=== PATIENT | male | born 1960 | race Caucasian/White ===

== ENCOUNTER 2020-10-03 06:08 | Day surgery (SDC) | payer OTHER ==
[2020-10-02 12:01] LABS: COVID AG,FIA SOURCE NASOPHARYNGEAL
[~2020-10-03] VITALS: Ht 170.2 cm; Wt 84.5 kg
[~2020-10-03 06:08] MED LIST: KETOROLAC TROMETHAMINE 0.5% 5 ML OPHTHALMIC SOLUTION ONE; MOXIFLOXACIN HCL 0.5% 3 ML OPHTHALMIC SOLUTION ONE; PHENYLEPHRINE HCL 2.5% 2 ML OPHTHALMIC SOLUTION ONE; RINGERS SOLUTION,LACTATED 500 ML IV ONE; TROPICAMIDE 1% 2 ML OPHTHALMIC SOLUTION ONE
[2020-10-03] MEDS ORDERED: FentaNYL CITRATE PF 100 MCG/2 ML VIAL IVP ONE (06:09)
[2020-10-03] MEDS ORDERED: MIDAZOLAM HCL 2 MG/2 ML VIAL IVP ONE (06:09)
[2020-10-03] MEDS ORDERED: MOME13HF IH (07:01)
[2020-10-03] MEDS ORDERED: ATOR40TA28 PO (07:01)
[2020-10-03] MEDS: MOXIFLOXACIN HCL 0.5% 3 ML OPHTHALMIC SOLUTION OS SCH ×3 (07:03→07:16)
[2020-10-03] MEDS: KETOROLAC TROMETHAMINE 0.5% 5 ML OPHTHALMIC SOLUTION OS SCH ×3 (07:03→07:16)
[2020-10-03] MEDS: TROPICAMIDE 1% 2 ML OPHTHALMIC SOLUTION OS SCH ×3 (07:04→07:16)
[2020-10-03] MEDS: PHENYLEPHRINE HCL 2.5% 2 ML OPHTHALMIC SOLUTION OS SCH ×3 (07:04→07:16)
[2020-10-03] MEDS ORDERED: TETRACAINE HCL/PF 0.5% 4 ML OPHTHALMIC SOLUTION ONE (14:53)
[2020-10-03] MEDS ORDERED: POVIDONE-IODINE 10% 15 ML SOLUTION UD ONE (14:53)
[2020-10-03] MEDS ORDERED: EPINEPHrine 1:1,000 [1 MG/ML] AMP ONE (14:53)
[2020-10-03] MEDS ORDERED: CHONDR SULF A SOD/HYALURONATE 1.05 ML KIT IO ONE (14:53)
[2020-10-03] MEDS ORDERED: BALANCED SALT 15 ML OPHTHALMIC IRRIG.SOLN ONE (14:53)
== END 2020-10-03 09:50 | disposition home or self-care (01) ==
LOC: SURGERY 06:08
PROVIDERS: ATTEND Ophthalmology
DX: H26.8 Other specified cataract (principal); H40.89 Other specified glaucoma; E78.00 Pure hypercholesterolemia, unspecified; I10 Essential (primary) hypertension; Z79.899 Other long term (current) drug therapy; J45.909 Unspecified asthma, uncomplicated; Z98.890 Other specified postprocedural states
CPT/HCPCS: 65820; 66984; 87426; 93005; A9575; C9803; J0171; J2250; J3010; J7120; V2632

== ENCOUNTER 2021-05-16 18:59 | Emergency (ER) | payer OTHER ==
[~2021-05-16] VITALS: Ht 175.3 cm; Wt 89.1 kg
[~2021-05-16 18:59] MED LIST changes: +ATOR40TA28 PO; -KETOROLAC TROMETHAMINE 0.5% 5 ML OPHTHALMIC SOLUTION ONE; +MOME13HF IH; -MOXIFLOXACIN HCL 0.5% 3 ML OPHTHALMIC SOLUTION ONE; -PHENYLEPHRINE HCL 2.5% 2 ML OPHTHALMIC SOLUTION ONE; -RINGERS SOLUTION,LACTATED 500 ML IV ONE; +SIMV-261 PO; -TROPICAMIDE 1% 2 ML OPHTHALMIC SOLUTION ONE
[2021-05-16] MEDS ORDERED: ACETAMINOPHEN 325 MG TABLET PO ONE (19:45)
[2021-05-16] MEDS ORDERED: AMOX TR/POT CLAV 875 MG/125 MG TABLET PO ONE (19:45)
[2021-05-16] MEDS ORDERED: POVIDONE-IODINE 10% 15 ML SOLUTION UD TP ONE (20:30)
[2021-05-16] MEDS ORDERED: BACITRACIN 0.9 GM PACKET OINTMENT TP ONE (20:30)
[2021-05-16 20:56] VITALS: BP 140/79
[2021-05-17] MEDS ORDERED: AMOX1TAB16 PO (11:45)
== END 2021-05-16 20:56 | disposition home or self-care (01) ==
LOC: EMS 19:03
DX: S62.633A Displaced fracture of distal phalanx of left middle finger, initial encounter for closed fracture (principal); S61.213A Laceration without foreign body of left middle finger without damage to nail, initial encounter; S61.212A Laceration without foreign body of right middle finger without damage to nail, initial encounter; I10 Essential (primary) hypertension; E78.00 Pure hypercholesterolemia, unspecified; W54.0XXA Bitten by dog, initial encounter; Y93.89 Activity, other specified; Y92.89 Other specified places as the place of occurrence of the external cause; Y99.8 Other external cause status
CPT/HCPCS: 99283

== ENCOUNTER 2024-05-26 08:34 | Inpatient (IN) | payer OTHER ==
[~2024-05-26] VITALS: Ht 167.6 cm; Wt 64.0 kg
[~2024-05-26 08:34] MED LIST changes: +AMOX-457 PO; -MOME13HF IH; +MOME13HF11 IH
[2024-05-26 09:51] LABS: BASOPHILS % (AUTO) 1.1 % (0.0-2.0); EOSINOPHILS % (AUTO) 4.3 % (1.0-6.0); HEMATOCRIT 42.2 % (41-53); HEMOGLOBIN 14.3 g/dL (13.5-17.5); LYMPHOCYTES # (AUTO) 1.3 K/uL (1.0-4.8); LYMPHOCYTES % (AUTO) 18.1 % (22.0-44.0); MEAN CORPUSCULAR HEMOGLOBIN 33.4 pg (26.0-34.0); MEAN CORPUSCULAR HGB CONC 33.9 G/dL (31.0-37.0); MEAN CORPUSCULAR VOLUME 98 fL (80-100); MONOCYTES # (AUTO) 0.5 K/uL (0.1-1.0); NEUTROPHILS # (AUTO) 5.1 K/uL (1.8-7.7); NEUTROPHILS % (AUTO) 69.5 % (40.0-70.0); PLATELET COUNT (AUTO) 191 K/uL (150-450); RED BLOOD CELL COUNT(AUTO) 4.29 MIL/uL (4.50-5.90); RED CELL DISTRIBUTION WIDTH 13.8 % (11.5-14.5); WHITE BLOOD COUNT (AUTO) 7.3 K/uL (4.5-11.0)
[2024-05-26 10:00] LABS: ANION GAP 6 mmol/L (8-16); CALCIUM, TOTAL 8.7 mg/dL (8.8-10.5); CARBON DIOXIDE 30 mmol/L (22-29); CHLORIDE 101 mmol/L (98-107); CREATININE 0.81 mg/dL (0.60-1.30); GLOMERULAR FILTR. RATE CALC > 60 mL/min (>60); GLUCOSE,RANDOM 96 mg/dL (70-110); POTASSIUM 4.3 mmol/L (3.5-5.1); SODIUM SERUM 137 mmol/L (136-145); UREA NITROGEN, BLOOD 18 mg/dL (7-18)
[2024-05-26 10:09] LABS: TROPONIN I-HIGH SENSITIVITY 4 ng/L (<76)
[2024-05-26] MEDS: SODIUM CHLORIDE 0.9% 1,000 ML IV ONE (10:25)
[2024-05-26 10:54] LABS: APPEARANCE,URINE CLEAR (CLEAR); BILIRUBIN,URINE NEGATIVE (NEGATIVE); COLOR,URINE LIGHT YELLOW (YELLOW); GLUCOSE, URINE (UA) NEGATIVE (NEGATIVE); KETONES,URINE NEGATIVE (NEGATIVE); LEUKOCYTE ESTERASE ,URINE NEGATIVE (NEGATIVE); NITRATE,URINE NEGATIVE (NEGATIVE); OCCULT BLOOD,URINE TRACE (NEGATIVE); PH,URINE 5.5 (5.0-8.0); PROTEIN,URINE NEGATIVE (NEGATIVE); SPECIFIC GRAVITIY, URINE 1.019 (1.003-1.030); UROBILINOGEN,URINE <=1.0 mg/dL (<=1.0)
[2024-05-26 11:33] LABS: RBC,URINE 0-2 /HPF (0-2)
[2024-05-26 11:34] LABS: BACTERIA,URINE None Seen /HPF (None Seen); WBC,URINE None Seen /HPF (0-5)
[2024-05-26 11:51] LABS: INFLUENZA A-RTPCR,COMBO NEGATIVE (NEGATIVE); INFLUENZA B-RTPCR,COMBO NEGATIVE (NEGATIVE); RESPIRATORY SYNCYTIAL VRS-PCR NEGATIVE (NEGATIVE); SARS COVID19 RTPCR, COMBO NEGATIVE (NEGATIVE)
[2024-05-26 12:50] VITALS: BP 163/116; PULSE 73; RESP 18; TEMP 98.2; O2SAT 0
[2024-05-26] MEDS: AmLODIPine BESYLATE 5 MG TABLET PO ONE (13:15)
[2024-05-26] MEDS ORDERED: CARB1TAB36 PO (13:29)
[2024-05-26] MEDS ORDERED: TAMS0.4C94 PO (13:29)
[2024-05-26] MEDS ORDERED: PNEUMOCOCCAL VACCINE POLYVALENT 0.5 ML SYRINGE [PPSV23] IM. ONE (14:15)
[2024-05-26] MEDS ORDERED: BISACODYL 10 MG RECTAL RECTAL SUPPOSITORY PR PRN (15:15)
[2024-05-26] MEDS ORDERED: MAGNESIUM HYDROXIDE SUSPENSION 30 ML UDCUP PO PRN (15:15)
[2024-05-26] MEDS ORDERED: HYDROCODONE/ACETAMINOPHEN 5-325 MG TABLET PO PRN (15:15)
[2024-05-26] MEDS ORDERED: MORPHINE SULFATE 2 MG/ML SYRINGE IVP PRN (15:15)
[2024-05-26] MEDS ORDERED: ONDANSETRON HCL 4 MG/2 ML VIAL IVP PRN (15:15)
[2024-05-26] MEDS ORDERED: ACETAMINOPHEN 325 MG TABLET PO PRN (15:15)
[2024-05-26] MEDS ORDERED: ZOLPIDEM TARTRATE 5 MG TABLET PO PRN (15:15)
[2024-05-26] MEDS: CARBIDOPA/LEVODOPA 25-100 MG TABLET PO SCH (16:00)
[2024-05-26] MEDS: HEPARIN SODIUM,PORCINE 5,000 UNITS/ML VIAL SQ SCH (16:00)
[2024-05-26 16:19] VITALS: BP 146/76; PULSE 74; RESP 18; TEMP 98.7; O2SAT 95
[2024-05-26 19:53] VITALS: BP 124/67; PULSE 73; RESP 18; TEMP 98.4; O2SAT 96
[2024-05-26] MEDS: DOCUSATE SODIUM 100 MG CAPSULE PO SCH (20:20)
[2024-05-26] MEDS: ATORVASTATIN CALCIUM 40 MG TABLET PO SCH (20:20)
[2024-05-26] MEDS ORDERED: MISC MED-CONVERTED FROM AMBULATORY (Mometasone/Formoterol (Dulera 200 Mcg-5 Mcg Inhaler) 2 IH SCH (21:00)
[2024-05-27 07:55] VITALS: BP 139/78; PULSE 77; RESP 20; TEMP 97.6; O2SAT 96
[2024-05-27] MEDS: PANTOPRAZOLE SODIUM 40 MG DR TABLET PO SCH (09:00)
[2024-05-27] MEDS: SIMVASTATIN 40 MG TABLET PO SCH (09:00)
[2024-05-27] MEDS: TAMSULOSIN HCL 0.4 MG CAPSULE PO SCH (09:01)
[2024-05-27] MEDS: AmLODIPine BESYLATE 5 MG TABLET PO SCH (09:01)
[2024-06-04] MEDS ORDERED: ALBU18HF12 IH (15:20)
== END 2024-05-27 16:30 | disposition home or self-care (01) | DRG 641 ==
LOC: EMS 08:35 → EDH 12:37 → 4E 14:16
PROVIDERS: ADMIT Internal Medicine; ATTEND Internal Medicine
DX: E86.0 Dehydration (principal); I10 Essential (primary) hypertension; G20.A1 Parkinson's disease without dyskinesia, without mention of fluctuations; R63.4 Abnormal weight loss; Z20.822 Contact with and (suspected) exposure to COVID-19; R29.6 Repeated falls; Z79.899 Other long term (current) drug therapy; E78.00 Pure hypercholesterolemia, unspecified; R62.7 Adult failure to thrive; N40.0 Benign prostatic hyperplasia without lower urinary tract symptoms; E78.5 Hyperlipidemia, unspecified; G31.84 Mild cognitive impairment of uncertain or unknown etiology; Z68.22 Body mass index [BMI] 22.0-22.9, adult
CPT/HCPCS: 0241U; 70450; 71045; 80048; 81001; 82271; 84153; 84484; 85025; 90732; 93005; 97162; 99285; G0378; J1644; 36415-L1; 36415-TC

== ENCOUNTER 2024-06-10 20:37 | Emergency (ER) | payer OTHER ==
[~2024-06-10] VITALS: Ht 167.6 cm; Wt 63.6 kg
[~2024-06-10 20:37] MED LIST changes: +ALBU18HF12 IH; -AMOX-457 PO; +CARB1TAB36 PO; +PRED-554 PO; -SIMV-261 PO; +TAMS0.4C94 PO
[2024-06-10 20:53] VITALS: BP 111/78; PULSE 112; RESP 16; TEMP 98.7; O2SAT 98
== END 2024-06-10 21:25 | disposition left against medical advice (07) ==
LOC: EMS 20:40
DX: Z53.21 Procedure and treatment not carried out due to patient leaving prior to being seen by health care provider (principal)